=== PATIENT | female | born 1945 | race Hispanic/Latino ===

== ENCOUNTER 2020-12-11 18:16 | Emergency (ER) | payer OTHER, MEDICARE ==
[2020-12-11] VITALS (9 sets, daily range): BP systolic 100–128; BP diastolic 33–90
[~2020-12-11] VITALS: Ht 152.4 cm; Wt 79.8 kg
[2020-12-11] MEDS ORDERED: MORPHINE 2 MG SYG IVP SCH (18:30)
[2020-12-11] MEDS ORDERED: ONDANSETRON 4MG INJ IVP SCH (18:30)
[2020-12-11 19:15] LABS: CREATININE 0.7 mg/dL (0.5-1.5)
[2020-12-11 19:16] LABS: BASOPHILS % (AUTO) 0.5 % (0.0-5.0); EOSINOPHILS % (AUTO) 0.8 % (0.0-8.0); HEMATOCRIT 34.4 % (36-48); LYMPHOCYTES % (AUTO) 12.6 % (21.0-51.0); MEAN CORPUSCULAR HEMOGLOBIN 27.6 pg (27.0-33.0); MEAN CORPUSCULAR VOLUME 86.4 fL (79-99); MONOCYTES % (AUTO) 5.4 % (3.0-13.0); NEUTROPHILS % (AUTO) 80.2 % (40.0-77.0); PLATELET COUNT (AUTO) 372 K/uL (130-400); RED BLOOD CELL COUNT(AUTO) 3.98 MIL/uL (4.00-5.50); RED CELL DISTRIBUTION WIDTH 16.6 % (11.0-15.5)
[2020-12-11 19:20] LABS: ALBUMIN 3.6 g/dL (3.5-5.0); BILIRUBIN,TOTAL 0.3 mg/dL (0.2-1.0); TOTAL PROTEIN, SERUM 6.7 g/dL (6.0-8.3)
[2020-12-11] MEDS ORDERED: PROPOFOL 10 MG/ML 20ML VIAL IV ONE (19:47)
[2020-12-11] MEDS ORDERED: PROPOFOL 500 MG/ 50ML VIAL IV SCH (20:00)
== END 2020-12-11 21:49 | disposition home or self-care (01) ==
LOC: EDH 18:16
DX: S43.005A Unspecified dislocation of left shoulder joint, initial encounter (principal); E11.9 Type 2 diabetes mellitus without complications; E78.00 Pure hypercholesterolemia, unspecified; I10 Essential (primary) hypertension; M19.90 Unspecified osteoarthritis, unspecified site; Z88.8 Allergy status to other drugs, medicaments and biological substances; Z91.041 Radiographic dye allergy status; W18.39XA Other fall on same level, initial encounter; Y93.01 Activity, walking, marching and hiking; Y92.89 Other specified places as the place of occurrence of the external cause; Y99.8 Other external cause status
CPT/HCPCS: 23650; 36415; 70450; 71045; 72125; 73030 ×2; 73060; 80053; 84484; 85025; 93005; 96374; 96375; 99285; J2405; J2704